=== PATIENT | female | born 2000 | race Caucasian/White ===

== ENCOUNTER 2021-08-19 15:45 | Emergency (ER) | payer OTHER ==
[~2021-08-19 15:45] MED LIST: COLACE 100MG C100 MG PO; IBUPROFEN600 MG PO; LORTAB 5-325 M1 EACH PO
[2021-08-19] MEDS ORDERED: IBUPROFEN600 MG PO (17:53)
== END 2021-08-19 18:00 | disposition home or self-care (01) ==
LOC: ER1 15:45
DX: S13.9XXA Sprain of joints and ligaments of unspecified parts of neck, initial encounter (principal); S00.11XA Contusion of right eyelid and periocular area, initial encounter; V43.92XA Unspecified car occupant injured in collision with other type car in traffic accident, initial encounter; S06.0X0A Concussion without loss of consciousness, initial encounter
CPT/HCPCS: 70450; 71046; 72125; 73030; 99284